=== PATIENT | male | born 1995 | race Caucasian/White ===

== ENCOUNTER 2019-12-24 14:55 | Emergency (ER) | payer OTHER, SELFPAY ==
[2019-12-24 15:07] VITALS: BP 158/58; PULSE 64; RESP 16; TEMP 36.8; O2SAT 99
--- NOTE | 2019-12-24 15:14 | ED.WOUNDLAC ---
HPI - Wound/Laceration General Chief Complaint: Wound/Laceration Stated Complaint: left finger index laceration Time Seen by Provider: 12/24/19 15:14 Source: patient, family and RN notes reviewed History of Present Illness HPI narrative: Patient is a 24-year-old male that presents the urgent care with complaints of a laceration to the left index finger. Patient states that happened just prior to arrival while he was cleaning out his car he cut it on a box stacker. No other acute complaints. No other acute injuries. Patient had a plan of care. Related Data Home Medications Medication Instructions Recorded Confirmed No Home Medications 12/24/19 12/24/19 Allergies Allergy/AdvReac Type Severity Reaction Status Date / Time No Known Allergies Allergy Mild Verified 12/24/19 15:04 Review of Systems Review of Systems: Narrative: CONSTITUTIONAL: Denies fever, chills, or sweats. EYES: Denies visual changes, redness, or discharge. ENT: Denies rhinorrhea, congestion, sore throat, or otalgia. CARDIOVASCULAR: Denies chest pain, palpitations, or edema. RESPIRATORY: Denies cough or dyspnea. GASTROINTESTINAL: Denies abdominal pain, nausea, vomiting, or diarrhea. GENITOURINARY: Denies dysuria or hematuria. SKIN: Reports of laceration to the left index finger. Denies rash or itching. MUSCULOSKELETAL: Denies back pain, joint pain, or myalgia. NEUROLOGIC: Denies headache, numbness, or weakness. All other systems reviewed are negative, except as documented in HPI. PMFSH Social History Social History Smoking status: Never smoker Comments At the time of my signature, I reviewed and agree with the nursing past medical, surgical, social, and family history. There is no relevant family history pertinent to the patient complaint. Exam Narrative: Exam Narrative: GENERAL: This is a well-nourished, well-developed patient, in no apparent distress. HEAD: normocephalic, atraumatic. EYES: PERRL. Sclera clear/white. Vision is grossly intact. EARS: External ears normal NOSE: External nose normal with no obvious nasal discharge THROAT: Mucous membranes moist NECK: Neck supple CARDIOVASCULAR: Regular rate and rhythm without murmurs, gallops, or rubs. RESPIRATORY: Clear to auscultation. Breath sounds equal bilaterally. No wheezes, rales, or rhonchi. SKIN: 1.5 cm linear laceration to the ulnar aspect of the left index finger. Warm, intact with no suspicious lesions or rash, good texture and turgor. NEURO: awake, alert, and oriented to person, place and time. There were no obvious focal neurologic abnormalities. EXTREMITIES: No clubbing, cyanosis, or edema. Course Vital Signs Vital signs: Vital Signs Temperature 98.3 F 12/24/19 15:07 Pulse Rate 64 12/24/19 15:07 Respiratory Rate 16 12/24/19 15:07 Blood Pressure 158/58 H 12/24/19 15:07 Pulse Oximetry 99 12/24/19 15:07 Temperature 98.3 F 12/24/19 15:07 Pulse Rate 64 12/24/19 15:07 Respiratory Rate 16 12/24/19 15:07 Blood Pressure 158/58 H 12/24/19 15:07 Pulse Oximetry 99 12/24/19 15:07 Reviewed?patient is informed that they may have pre-hypertension or hypertension based on a blood pressure reading in the department. I recommend the patient call the primary care provider listed on their discharge instructions or a physician of their choice this week to arrange follow-up for further evaluation of possible pre-hypertension or hypertension. Procedures Laceration Laceration 1: Site: hand (Left index finger) Side (If applicable): left Size (cm): 1.5 Description: linear Depth: simple, single layer Local Anesthetic: none Pre-repair: irrigated ====== Skin Level ====== Skin layer closed with: dermabond and steri strips ====== Subcutaneous Layer ====== ====== Muscle Layer ====== ====== Tendon Layer ====== Dressing: Patient tolerated well. Procedure successful. MDM - Wound/L
== END 2019-12-24 15:57 | disposition home or self-care (01) ==
PROVIDERS: Emergency Provider Nurse Practitioner Family; PCP Family Medicine
DX: S61.211A Laceration without foreign body of left index finger without damage to nail, initial encounter (principal); W26.8XXA Contact with other sharp object(s), not elsewhere classified, initial encounter
CPT/HCPCS: 12001; 99202; G0463